=== PATIENT | male | born 1955 | race Two or more races ===

== ENCOUNTER 2017-06-03 19:00 | Inpatient (IN) | payer MEDICARE, MEDICAID ==
--- NOTE | 2017-06-03 19:03 | ED Physician Chart ---
Chief Complaint/HPI - Patient Information Date Seen:: 06/03/17 Time Seen:: 19:02 Chief Complaint:: seizures History of Present Illness:: 51-year-old male with underlying seizure disorder which was fairly stabilized past, run in by ambulance with acute, worsening, intermittent with 2 episodes, severe, seizure activity that started this morning. Has associated postictal state after the seizures. Typically takes Depakote and Keppra which controlled his seizures. History limited by patient's underlying medical conditions and underlying psychiatric issues making him a poor historian History provided by EMS and EMS run sheet Allergies:: Allergies Allergy/AdvReac Type Severity Reaction Status Date / Time No Known Allergies Allergy Verified 08/26/16 14:19 Historian:: Patient, EMS Review:: Nurse's Note Reviewed, EMS run form Reviewed, Transfer documents Reviewed Review of Systems - Review of Systems Other: Complete system review otherwise unremarkable except as noted in history of present illness. Past Medical History - Past Medical History Past Medical History: Other (seizure disorder, diabetes mellitus type 2, chronic pain syndrome, muscle weakness, difficulty walking, pseudobulbar affect , mood affective disorder, COPD, BPH, anxiety disorder, unspecified osteoarthritis) Family History: None Social History: Non Smoker, No Alcohol, No Drug Use, Care Facility Surgical History: other (craniectomy) Psychiatricy History: Other Medication: Reviewed Family Medical History - Family Member Mother History Unknown: Yes Ethnicity: Unknown Living Status: Physical Exam - Physical Examination Other:: INITIAL VITAL SIGNS: Reviewed by me GENERAL: Alert and interactive. No acute distress HEAD: Head is normocephalic and atraumatic EYES: EOMI. PERRL. No scleral icterus. No conjunctival injection ENT: Moist mucous membranes. NECK: Supple. No masses. Full range of motion RESPIRATORY: No tachypnea. Clear breath sounds bilaterally. No wheezing, rales, or rhonchi CV: Regular rate and rhythm. No murmurs, rubs, or gallops ABDOMEN: Soft, non-distended, non-tender. No guarding. No rebound. No masses. EXTREMITIES: No deformity. No cyanosis. No edema. SKIN: Warm and dry. No obvious rashes. NEUROLOGIC: Alert and oriented oriented to self. Generalized Left-sided deficit with left sided contractions. Labs/Radiology/EKG Results - Lab Results Results: Laboratory Results WBC 8.8 Th/cmm (4.8-10.8) D 06/03/17 19:22 RBC 5.13 Mil/cmm (4.30-5.70) 06/03/17 19:22 Hgb 16.1 gm/dL (13.2-17.3) 06/03/17 19:22 Hct 48.5 % (39.0-49.0) 06/03/17 19:22 MCV 94.5 fl (80-99) 06/03/17 19:22 MCH 31.5 pg (26.0-30.0) H 06/03/17 19:22 MCHC Differential 33.3 pg (28.0-36.0) 06/03/17 19:22 RDW 12.7 % (11.5-20.0) 06/03/17 19:22 Plt Count 72 Th/cmm (150-400) L D 06/03/17 19:22 MPV 9.1 fl 06/03/17 19:22 Neutrophils (Manual) 73 % (40-80) 06/03/17 19:22 Lymphocytes 21 % (20-50) 06/03/17 19:22 Monocytes 4 % (2-10) 06/03/17 19:22 Eosinophils 2 % (0-5) 06/03/17 19:22 Platelet Estimate DECREASED PLATELETS (NORMAL) 06/03/17 19:22 Platelet Morphology NORMAL (NORMAL) 06/03/17 19:22 Sodium 136 mEq/L (136-145) 06/03/17 19:22 Potassium 3.7 mEq/L (3.5-5.1) 06/03/17 19:22 Chloride 106 mEq/L (98-107) 06/03/17 19:22 Carbon Dioxide 27.0 mEq/L (21.0-31.0) 06/03/17 19:22 Anion Gap 6.7 (7.0-16.0) L 06/03/17 19:22 BUN 21 mg/dL (7-25) 06/03/17 19:22 Creatinine 0.7 mg/dL (0.7-1.3) 06/03/17 19:22 Est GFR ( Amer) > 60.0 ml/min (>90) 06/03/17 19:22 Est GFR (Non-Af Amer) > 60.0 ml/min 06/03/17 19:22 BUN/Creatinine Ratio 30.0 06/03/17 19:22 Glucose 123 mg/dL (70-105) H 06/03/17 19:22 Calcium 9.5 mg/dL (8.6-10.3) 06/03/17 19:22 Total Bilirubin 1.2 mg/dL (0.3-1.0) H 06/03/17 19:22 AST 31 U/L (13-39) 06/03/17 19:22 ALT 30 U/L (7-52) 06/03/17 19:22 Alkaline Phosphatase 62 U/L (34-104) 06/03/17 19:22 Total Protein 7.2 gm/dL (6.0-8.3) 06/03/17 19:22 Albumin 3.9 gm/dL (4.2-5.5) L 06/03/17 19:22 Globulin 3.3 gm/dL 06/03/17 19:22 Albumin/Globulin Ratio 1.2 (1.0-1.8) 06/03/17 19:22 Urine Source CATH 06/03/17 20:00 Urine Color YELLOW 06/03/17 20:00 Urine Clarity SLIGHT HAZY (CLEAR) 06/03/17 20:00 Urine pH 7.5 06/03/17 20:00 Ur Specific [place] 1.010 (1.005-1.030) 06/03/17 20:00 Urine Protein NEGATIVE mg/dL (NEGATIVE) 06/03/17 20:00 Urine Glucose (UA) NEGATIVE mg/dL (NEGATIVE) 06/03/17 20:00 Urine Ketones NEGATIVE mg/dL (NEGATIVE) 06/03/17 20:00 Urine Blood NEGATIVE (NEGATIVE) 06/03/17 20:00 Urine Nitrate NEGATIVE (NEGATIVE) 06/03/17 20:00 Urine Bilirubin NEGATIVE (NEGATIVE) 06/03/17 20:00 Urine Urobilinogen 4.0 E.U./dL (0.2 - 1.0) H 06/03/17 20:00 Ur Leukocyte Esterase NEGATIVE (NEGATIVE) 06/03/17 20:00 Urine RBC NONE SEEN /hpf (0-5) 06/03/17 20:00 Urine WBC 2-5 /hpf (0-5) H 06/03/17 20:00 Ur Epithelial Cells RARE /lpf (FEW) 06/03/17 20:00 Amorphous Sediment MANY URATES (NONE SEEN) 06/03/17 20:00 Urine Bacteria FEW /hpf (NONE SEEN) 06/03/17 20:00 Valproic Acid 30.0 ug/mL (50.0-100.0) L 06/03/17 19:22 - Radiology Results Results: CT head without contrast NAD - EKG Interpretations Comments:: 12-lead EKG Interpretation by Florina Johnston MD: Normal Sinus Rhythm with ventricular rate of 76 beats per minute Normal axis Normal intervals No acute ST or T wave changes. No obvious STEMI ED Septic Shock - . Is Septic Shock (SBP<90, OR Lactate>4 mmol\L) present?: No Reassessment (Disposition) - Reassessment Reassessment:: 61-year-old male with underlying seizure disorder, has multiple other comorbidities complicating his history, patient's valproic acid level was low. We did give IV [place]'s arrival. He is currently uncontrolled seizure disorder. Is at increased risk of having more severe and damaging seizure activity. He will need further workup and treatment. Discussed the case with the hospitalist. We have administered 500 mg of valproic acid here in the ER. Patient is admitted for further workup and treatment. Reassessment Condition:: Unchanged - Diagnosis Diagnosis:: Uncontrolled seizures - Patient Disposition Discharge/Transfer:: Acute Care w/in this hosp Admitted to:: Telemetry Admitting Medical Physician:: Mynor Evans Time:: 21:52 Condition at Disposition:: Stable
[2017-06-03 19:33] LABS: HEMATOCRIT 48.5 % (39.0-49.0); HEMOGLOBIN 16.1 gm/dL (13.2-17.3); MEAN CELL VOLUME 94.5 fl (80-99); MEAN CORPUSCULAR HEMOGLOBIN 31.5 pg (26.0-30.0); MEAN CORPUSCULAR HGB CONC 33.3 pg (28.0-36.0); MEAN PLATELET VOLUME 9.1 fl; RED BLOOD COUNT 5.13 Mil/cmm (4.30-5.70); RED CELL DISTRIBUTION WIDTH 12.7 % (11.5-20.0)
[2017-06-03 19:45] LABS: ALB/GLOB RATIO 1.2 (1.0-1.8); ALKALINE PHOSPHATASE 62 U/L (34-104); ANION GAP 6.7 (7.0-16.0); BILIRUBIN,TOTAL 1.2 mg/dL (0.3-1.0); BUN - UREA NITROGEN 21 mg/dL (7-25); CALCIUM SERUM 9.5 mg/dL (8.6-10.3); CHLORIDE 106 mEq/L (98-107); CREATININE - SERUM 0.7 mg/dL (0.7-1.3); GLUCOSE 123 mg/dL (70-105); POTASSIUM SERUM 3.7 mEq/L (3.5-5.1); SGOT 31 U/L (13-39); SGPT/ALT 30 U/L (7-52); SODIUM SERUM 136 mEq/L (136-145)
[2017-06-03 19:49] LABS: PLATELET COUNT 72 Th/cmm (150-400); WHITE BLOOD COUNT 8.8 Th/cmm (4.8-10.8)
[2017-06-03 19:53] LABS: EOSINOPHIL 2 % (0-5); NEUTROPHILS 73 % (40-80); PLATELET ESTIMATE DECREASED PLATELETS (NORMAL); PLATELET MORPHOLOGY NORMAL (NORMAL); TOTAL CELLS COUNTED 100
[2017-06-03 20:24] LABS: URINE COLOR YELLOW
[2017-06-03 20:25] LABS: URINE BACTERIA FEW /hpf (NONE SEEN); URINE BILIRUBIN NEGATIVE (NEGATIVE); URINE BLOOD NEGATIVE (NEGATIVE); URINE EPITHELIAL CELLS RARE /lpf (FEW); URINE GLUCOSE (UA) NEGATIVE (NEGATIVE); URINE KETONE NEGATIVE (NEGATIVE); URINE PH 7.5; URINE PROTEIN NEGATIVE (NEGATIVE); URINE RBC NONE SEEN /hpf (0-5)
[2017-06-03 20:26] LABS: URINE AMORPHOUS SEDIMENT MANY URATES (NONE SEEN)
[2017-06-03] MEDS ORDERED: Valproate Sodium 500 MG in Sodium Chloride 0.9% 100 ML IV ONE (21:51)
[2017-06-03] MEDS ORDERED: guaiFENesin 200 MG/10 ML UDC PO PRN (22:14)
[2017-06-03] MEDS ORDERED: Ipratropium Neb 0.5 mg/2.5 mL UD IH PRN (22:14)
[2017-06-03] MEDS ORDERED: Albuterol Nebulizer 2.5mg/3mL HHN PRN (22:14)
[2017-06-03] MEDS ORDERED: Maalox 30 mL Cup PO PRN (22:14)
[2017-06-03] MEDS: Sodium Chloride 0.9% 1,000 ML IV SCH (23:39)
--- NOTE | 2017-06-04 03:10 | Admit Criteria Form ---
Admit Criteria Forms - Admit Criteria Diagnosis: SEIZURE Clinical Indications for Admission to Inpatient Care (Place 'X' for any and all applicable criteria): Admission is indicated for seizure and ANY ONE of the following(1)(2)(3)(4)(5): [ X]I. Inpatient admission required rather than observation care (Also use Seizure: Observation Care Criteria as appropriate) because of ANY ONE of the following: [ ]a) Altered mental status that is severe or persistent [ ]b) New focal neurologic deficit that is severe or persistent [ ]c) Metabolic disorder (eg, hypoglycemia, hyponatremia) that is severe or persistent [X ]d) Recurrent seizure [ ]e) Outpatient antiseizure regimen cannot be established (eg , patient cannot tolerate medication, initiation requires inpatient care) [X ]f) Need for ongoing intravenous infusion of antiseizure medication [ ]g) Cardiac arrhythmias of immediate concern [ ]h) Cerebral bleeding, hydrocephalus, or vasospasm monitoring (14) [ ]i) Increased intracranial pressure or cerebral edema monitoring (15) [ ]j) Other treatment or monitoring requiring inpatient admission [ ]II. Status epilepticus [A] or repetitive seizures not controlled with emergent treatment (6)(8) [ ]III. Brain disorder (eg, tumor, edema, and hydrocephalus) that requiring monitoring or intervention available only at inpatient level of care. [ ]IV. Brain insult (eg, severe trauma, stroke, drug toxicity, or withdrawal) that requires monitoring or intervention available only at inpatient level of care (10)(11) Extended stay beyond goal length of stay may be needed for (22) [ ]a) Complications of status epilepticus [ ]b) Refractory status epilepticus [ ]c) Etiology-specific therapy for conditions such as WATCH TECHNICIAN infection, head injury,eclampsia, severe metabolic abnormalities, and brain tumor [ ]d) Residual neurologic damage, [ ]e) Initiation of significant change to anticonvulsant treatment [ ]f) Older patients (65 years or older) [ ]g) Patient requiring intubation (eg, to protect airway) The original [facility] content created by [employer] has been revised. The portions of the content which have been revised are identified through the use of italic text or in bold, and [facility] has neither reviewed nor approved the modified material. All other unmodified content is copyright [facility] [employer]. Please see references footnoted in the original [facility] edition 2016 Admit Criteria Met?: Yes
[2017-06-04] MEDS ORDERED: BROMFENAC SODIUM EACH EYE SCH (09:00)
[2017-06-04] MEDS: Polyvinyl Alcohol Ophth Soln 15 mL Bottle EACH EYE SCH ×3 (10:06→22:09)
--- NOTE | 2017-06-04 10:56 | Diagnostic Imaging Report ---
Head CT without intravenous contrast Indication: Seizure Comparison: Head CT performed on 08/26/2016 Technique: Axial images were obtained from the vertex to the skull base without IV contrast. Coronal reconstructions were made. Total DLP: 908, CTDI42.7 FINDINGS: Images of the brain obtained without contrast again demonstrate large frontotemporal craniectomy defect with overlying graft noted. Streak artifact from the graft limits the examination. No evidence of gross hemorrhage. 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 Diffuse atrophy is noted. There is ex vacuo dilatation of the right lateral ventricle. No mass effect or midline shift. An a few pockets of gas are seen along the postsurgical bed of the right-sided graft. Similar findings were seen on prior examination. IMPRESSION: Extensive postsurgical changes of the right cerebral hemisphere including large right frontal temporal craniectomy with overlying surgical flap. Streak artifact from the surgical flap limits the examination, however, no gross hemorrhage is identified. Bernie area of encephalomalacia involving the right frontal and temporal lobe. Diffuse atrophy. Few pockets of gas seen along the postsurgical bed of the right frontal and temporal regions. Similar findings were seen on prior examination. Please correlate clinically.
[2017-06-04] MEDS: INSULIN ASPART, RECOMBINANT 100 UNITS/ML SUBQ SCH ×3 (12:00→21:39)
--- NOTE | 2017-06-04 13:21 | Internal Medicine Prog Note ---
Internal Medicine Subjective - Subjective Service Date: 06/04/17 ([id number]) Internal Medicine Objective - Results Result Diagrams: 06/03/17 19:22 06/03/17 19:22 Recent Labs: Laboratory Last Values WBC 8.8 Th/cmm (4.8-10.8) D 06/03/17 19:22 RBC 5.13 Mil/cmm (4.30-5.70) 06/03/17 19:22 Hgb 16.1 gm/dL (13.2-17.3) 06/03/17 19:22 Hct 48.5 % (39.0-49.0) 06/03/17 19:22 MCV 94.5 fl (80-99) 06/03/17 19:22 MCH 31.5 pg (26.0-30.0) H 06/03/17 19:22 MCHC Differential 33.3 pg (28.0-36.0) 06/03/17 19:22 RDW 12.7 % (11.5-20.0) 06/03/17 19:22 Plt Count 72 Th/cmm (150-400) L D 06/03/17 19:22 MPV 9.1 fl 06/03/17 19:22 Neutrophils (Manual) 73 % (40-80) 06/03/17 19:22 Lymphocytes 21 % (20-50) 06/03/17 19:22 Monocytes 4 % (2-10) 06/03/17 19:22 Eosinophils 2 % (0-5) 06/03/17 19:22 Platelet Estimate DECREASED PLATELETS (NORMAL) 06/03/17 19:22 Platelet Morphology NORMAL (NORMAL) 06/03/17 19:22 Sodium 136 mEq/L (136-145) 06/03/17 19:22 Potassium 3.7 mEq/L (3.5-5.1) 06/03/17 19:22 Chloride 106 mEq/L (98-107) 06/03/17 19:22 Carbon Dioxide 27.0 mEq/L (21.0-31.0) 06/03/17 19:22 Anion Gap 6.7 (7.0-16.0) L 06/03/17 19:22 BUN 21 mg/dL (7-25) 06/03/17 19:22 Creatinine 0.7 mg/dL (0.7-1.3) 06/03/17 19:22 Est GFR ( Amer) > 60.0 ml/min (>90) 06/03/17 19:22 Est GFR (Non-Af Amer) > 60.0 ml/min 06/03/17 19:22 BUN/Creatinine Ratio 30.0 06/03/17 19:22 Glucose 123 mg/dL (70-105) H 06/03/17 19:22 POC Glucose 108 MG/DL (70 - 105) H 06/04/17 12:03 Calcium 9.5 mg/dL (8.6-10.3) 06/03/17 19:22 Total Bilirubin 1.2 mg/dL (0.3-1.0) H 06/03/17 19:22 AST 31 U/L (13-39) 06/03/17 19:22 ALT 30 U/L (7-52) 06/03/17 19:22 Alkaline Phosphatase 62 U/L (34-104) 06/03/17 19:22 Total Protein 7.2 gm/dL (6.0-8.3) 06/03/17 19:22 Albumin 3.9 gm/dL (4.2-5.5) L 06/03/17 19:22 Globulin 3.3 gm/dL 06/03/17 19:22 Albumin/Globulin Ratio 1.2 (1.0-1.8) 06/03/17 19:22 Urine Source CATH 06/03/17 20:00 Urine Color YELLOW 06/03/17 20:00 Urine Clarity SLIGHT HAZY (CLEAR) 06/03/17 20:00 Urine pH 7.5 06/03/17 20:00 Ur Specific [place] 1.010 (1.005-1.030) 06/03/17 20:00 Urine Protein NEGATIVE mg/dL (NEGATIVE) 06/03/17 20:00 Urine Glucose (UA) NEGATIVE mg/dL (NEGATIVE) 06/03/17 20:00 Urine Ketones NEGATIVE mg/dL (NEGATIVE) 06/03/17 20:00 Urine Blood NEGATIVE (NEGATIVE) 06/03/17 20:00 Urine Nitrate NEGATIVE (NEGATIVE) 06/03/17 20:00 Urine Bilirubin NEGATIVE (NEGATIVE) 06/03/17 20:00 Urine Urobilinogen 4.0 E.U./dL (0.2 - 1.0) H 06/03/17 20:00 Ur Leukocyte Esterase NEGATIVE (NEGATIVE) 06/03/17 20:00 Urine RBC NONE SEEN /hpf (0-5) 06/03/17 20:00 Urine WBC 2-5 /hpf (0-5) H 06/03/17 20:00 Ur Epithelial Cells RARE /lpf (FEW) 06/03/17 20:00 Amorphous Sediment MANY URATES (NONE SEEN) 06/03/17 20:00 Urine Bacteria FEW /hpf (NONE SEEN) 06/03/17 20:00 Valproic Acid 30.0 ug/mL (50.0-100.0) L 06/03/17 19:22 - Physical Exam Vitals and I&O: Vital Signs Temp 98.0 F 06/04/17 04:00 Pulse 63 06/04/17 07:00 Resp 14 06/04/17 07:00 BP 116/52 06/04/17 04:00 Pulse Ox 95 06/04/17 07:00 Intake & Output 06/03/17 06/04/17 06/04/17 18:59 06:59 18:59 Weight (lbs) 199 lb 6.4 oz Other: # Voids 3 # Bowel Movements 1 Stool Characteristics Soft Active Medications: Current Medications Acetaminophen (Tylenol) 650 mg PO Q4HR PRN PRN Reason: pain Stop: 08/02/17 22:10 Acetaminophen (Tylenol) 650 mg PO Q4HR PRN PRN Reason: temp>101 Stop: 08/02/17 22:10 Al Hydrox/Mg Hydrox/Simethicone (Maalox) 30 ml PO Q6H PRN PRN Reason: Dyspepsia Stop: 08/02/17 22:13 Albuterol Sulfate (Albuterol 2.5mg/3ml Neb Ud) 2.5 mg HHN Q2HRT PRN PRN Reason: Shortness of Breath or Wheeze Stop: 08/02/17 22:13 Artificial Tears (Artificial Tears Ophth Soln) 1 drop EACH EYE TID KELLEE Stop: 08/03/17 08:59 Last Admin: 06/04/17 10:06 Dose: 1 drop Divalproex Sodium (Depakote Dr) 250 mg PO HS KELLEE PRN Reason: Protocol Stop: 08/03/17 20:59 Divalproex Sodium (Depakote Dr) 250 mg PO QAM KELLEE PRN Reason: Protocol Stop: 08/03/17 08:59 Last Admin: 06/04/17 10:06 Dose: 250 mg Docusate Sodium (Colace) 100 mg PO DAILY [facility] Stop: 08/03/17 08:59 Last Admin: 06/04/17 10:06 Dose: 100 mg Guaifenesin (Robitussin) 200 mg PO Q4HR PRN PRN Reason: Cough or Congestion Stop: 08/02/17 22:13 Heparin Sodium (Porcine) (Heparin) 5,000 units SUBQ Q12HR KELLEE Stop: 08/03/17 08:59 Last Admin: 06/04/17 10:05 Dose: 5,000 units Sodium Chloride (Nacl 0.9%) 1,000 mls @ 80 mls/hr IV .[id number] [facility] Stop: 08/02/17 22:14 Last Admin: 06/03/17 23:39 Dose: 80 mls/hr Insulin Aspart (Novolog) 0 units SUBQ ACHS KELLEE PRN Reason: Protocol Stop: 08/03/17 07:29 Ipratropium [place] (Atrovent Neb 0.5mg/2.5ml) 0.5 mg IH Q2HRT PRN PRN Reason: Shortness of Breath or Wheeze Stop: 08/02/17 22:13 Levetiracetam (Keppra) 750 mg PO BID [facility] Stop: 08/03/17 08:59 Last Admin: 06/04/17 10:05 Dose: 750 mg Lorazepam (Ativan) 0.5 mg PO Q6HR PRN; Protocol PRN Reason: Anxiety Stop: 08/02/17 22:10 Lorazepam (Ativan) 1 mg IV Q4H PRN; Protocol PRN Reason: Seizure Stop: 08/02/17 22:13 Metformin HCl (Glucophage) 500 mg PO BID [facility] Stop: 08/03/17 08:59 Last Admin: 06/04/17 10:06 Dose: 500 mg Miscellaneous (Bromfenac Sodium [Bromfenac Sodium]) 1 drop EACH EYE DAILY [facility] Stop: 08/03/17 08:59 Miscellaneous (Mineral Oil/Petrolatum,White [Refresh Lacri-Lube Ointment]) 1 appl EACH EYE HS KELLEE Stop: 08/03/17 20:59 Ondansetron HCl (Zofran) 4 mg IV Q8H PRN PRN Reason: Nausea / Vomiting Stop: 08/02/17 22:13 Tamsulosin HCl (Flomax) 0.4 mg PO HS KELLEE Stop: 08/03/17 20:59 Zolpidem Tartrate (Ambien) 10 mg PO HS PRN PRN Reason: Insomnia Stop: 08/02/17 22:13 Internal Medicine Assmt/Plan - Assessment Assessment: uncontrolled sz dysphagia htn copd oa bph hemiplegia/hemiparesis gerd
--- NOTE | 2017-06-04 14:01 | History & Physical ---
ADMIT DATE: 06/04/2017 CHIEF COMPLAINT: Seizure. HISTORY OF PRESENT ILLNESS: This is a 61-year-old male who is a resident of [facility] who is brought here to [facility] for 1-day history of seizures. According to ER records, the patient had 2 episodes of worsening seizures. For this reason, the patient was brought to [facility]. PAST MEDICAL HISTORY: Seizure disorder, type 2 diabetes, chronic pain syndrome, muscle weakness, difficulty walking, ____ affect, mood affective disorder, COPD, BPH, anxiety, osteoarthritis. FAMILY HISTORY: Noncontributory. SOCIAL HISTORY: The patient is a [facility] resident, requiring 24-hour nursing care. PAST SURGICAL HISTORY: Craniectomy. MEDICATIONS: Please see medication reconciliation sheet. REVIEW OF SYSTEMS: GENERAL: Denies any fevers or chills. CARDIOVASCULAR: Denies any chest pain. RESPIRATORY: Denies any shortness of breath. GASTROINTESTINAL: Denies any nausea, vomiting, abdominal pain. All other systems are reviewed by me and are negative. PHYSICAL EXAMINATION: GENERAL: The patient is well developed, well nourished, no acute distress. VITAL SIGNS: Temperature 98.0, heart rate 60, blood pressure 116/52, respirations 20, O2 97%. HEENT: Head; normocephalic, atraumatic. NECK: Supple. No mass. LUNGS: Clear bilaterally. HEART: Regular rhythm. ABDOMEN: Soft and nontender. LABORATORY DATA: WBC 8.8, H and H is 16.1 and 48.5, platelets of 72. Sodium 136, potassium 3.7, chloride 106, BUN 21, creatinine 0.7. Valproic acid 30.0. DIAGNOSTICS: The patient had a CT of the head done and the impression is extensive postsurgical changes in the right cerebral hemisphere including large right frontotemporal craniectomy with overlying surgical flap. ASSESSMENT: Uncontrolled seizure, benign prostatic hypertrophy, type 2 diabetes, dysphasia, hemiplegia, hemiparesis, chronic obstructive pulmonary disease. PLAN: The patient to be admitted to the telemetry unit. The patient will have a consultation with neurologist. The patient will be kept on IV fluids for hydration. Seizure precautions will be initiated. We will continue to monitor the patient. JOB# [id number]
[2017-06-05] MEDS: Sodium Chloride 0.9% 1,000 ML IV SCH ×2 (03:31→16:59)
[2017-06-05 05:51] LABS: NEUTROPHILE ABSOLUTE 1.9 Th/cmm (1.8-8.0)
[2017-06-05 05:58] LABS: % LYMPHOCYTES 29.5 % (20.0-50.0); % MONOCYTES 10.4 % (2.0-10.0); % NEUTROPHILS 53.1 % (40.0-80.0); HEMOGLOBIN 15.4 gm/dL (13.2-17.3); MEAN CELL VOLUME 95.4 fl (80-99); MEAN CORPUSCULAR HEMOGLOBIN 31.9 pg (26.0-30.0); MEAN CORPUSCULAR HGB CONC 33.5 pg (28.0-36.0); PLATELET COUNT 63 Th/cmm (150-400); RED BLOOD COUNT 4.82 Mil/cmm (4.30-5.70); RED CELL DISTRIBUTION WIDTH 12.7 % (11.5-20.0)
[2017-06-05 06:07] LABS: WHITE BLOOD COUNT 3.5 Th/cmm (4.8-10.8)
[2017-06-05 06:12] LABS: ANION GAP 5.7 (7.0-16.0); BUN - UREA NITROGEN 13 mg/dL (7-25); BUN/CREATININE RATIO 21.7; CALCIUM SERUM 9.1 mg/dL (8.6-10.3); CARBON DIOXIDE 27.1 mEq/L (21.0-31.0); CHLORIDE 108 mEq/L (98-107); CREATININE - SERUM 0.6 mg/dL (0.7-1.3); GLUCOSE 93 mg/dL (70-105); POTASSIUM SERUM 3.8 mEq/L (3.5-5.1); SODIUM SERUM 137 mEq/L (136-145)
[2017-06-05] MEDS: INSULIN ASPART, RECOMBINANT 100 UNITS/ML SUBQ SCH ×4 (06:45→21:00)
[2017-06-05] MEDS: Polyvinyl Alcohol Ophth Soln 15 mL Bottle EACH EYE SCH ×3 (08:29→21:00)
--- NOTE | 2017-06-05 12:25 | Internal Medicine Prog Note ---
Internal Medicine Subjective - Subjective Service Date: 06/05/17 Patient seen and examined:: with staff Patient is:: awake Per staff patient has:: no adverse event Internal Medicine Objective - Results Result Diagrams: 06/05/17 05:10 06/05/17 05:10 Recent Labs: Laboratory Last Values WBC 3.5 Th/cmm (4.8-10.8) L D 06/05/17 05:10 RBC 4.82 Mil/cmm (4.30-5.70) 06/05/17 05:10 Hgb 15.4 gm/dL (13.2-17.3) 06/05/17 05:10 Hct 46.0 % (39.0-49.0) 06/05/17 05:10 MCV 95.4 fl (80-99) 06/05/17 05:10 MCH 31.9 pg (26.0-30.0) H 06/05/17 05:10 MCHC Differential 33.5 pg (28.0-36.0) 06/05/17 05:10 RDW 12.7 % (11.5-20.0) 06/05/17 05:10 Plt Count 63 Th/cmm (150-400) L 06/05/17 05:10 MPV 9.0 fl 06/05/17 05:10 Neutrophils % 53.1 % (40.0-80.0) 06/05/17 05:10 Lymphocytes % 29.5 % (20.0-50.0) 06/05/17 05:10 Monocytes % 10.4 % (2.0-10.0) H 06/05/17 05:10 Eosinophils % 7.0 % (0.0-5.0) H 06/05/17 05:10 Basophils % 0.0 % (0.0-2.0) 06/05/17 05:10 Neutrophils (Manual) 73 % (40-80) 06/03/17 19:22 Lymphocytes 21 % (20-50) 06/03/17 19:22 Monocytes 4 % (2-10) 06/03/17 19:22 Eosinophils 2 % (0-5) 06/03/17 19:22 Platelet Estimate DECREASED PLATELETS (NORMAL) 06/03/17 19:22 Platelet Morphology NORMAL (NORMAL) 06/03/17 19:22 Sodium 137 mEq/L (136-145) 06/05/17 05:10 Potassium 3.8 mEq/L (3.5-5.1) 06/05/17 05:10 Chloride 108 mEq/L (98-107) H 06/05/17 05:10 Carbon Dioxide 27.1 mEq/L (21.0-31.0) 06/05/17 05:10 Anion Gap 5.7 (7.0-16.0) L 06/05/17 05:10 BUN 13 mg/dL (7-25) 06/05/17 05:10 Creatinine 0.6 mg/dL (0.7-1.3) L 06/05/17 05:10 Est GFR ( Amer) > 60.0 ml/min (>90) 06/05/17 05:10 Est GFR (Non-Af Amer) > 60.0 ml/min 06/05/17 05:10 BUN/Creatinine Ratio 21.7 06/05/17 05:10 Glucose 93 mg/dL (70-105) 06/05/17 05:10 POC Glucose 84 MG/DL (70 - 105) 06/05/17 11:43 Calcium 9.1 mg/dL (8.6-10.3) 06/05/17 05:10 Total Bilirubin 1.2 mg/dL (0.3-1.0) H 06/03/17 19:22 AST 31 U/L (13-39) 06/03/17 19:22 ALT 30 U/L (7-52) 06/03/17 19:22 Alkaline Phosphatase 62 U/L (34-104) 06/03/17 19:22 Total Protein 7.2 gm/dL (6.0-8.3) 06/03/17 19:22 Albumin 3.9 gm/dL (4.2-5.5) L 06/03/17 19:22 Globulin 3.3 gm/dL 06/03/17 19:22 Albumin/Globulin Ratio 1.2 (1.0-1.8) 06/03/17 19:22 Urine Source CATH 06/03/17 20:00 Urine Color YELLOW 06/03/17 20:00 Urine Clarity SLIGHT HAZY (CLEAR) 06/03/17 20:00 Urine pH 7.5 06/03/17 20:00 Ur Specific [place] 1.010 (1.005-1.030) 06/03/17 20:00 Urine Protein NEGATIVE mg/dL (NEGATIVE) 06/03/17 20:00 Urine Glucose (UA) NEGATIVE mg/dL (NEGATIVE) 06/03/17 20:00 Urine Ketones NEGATIVE mg/dL (NEGATIVE) 06/03/17 20:00 Urine Blood NEGATIVE (NEGATIVE) 06/03/17 20:00 Urine Nitrate NEGATIVE (NEGATIVE) 06/03/17 20:00 Urine Bilirubin NEGATIVE (NEGATIVE) 06/03/17 20:00 Urine Urobilinogen 4.0 E.U./dL (0.2 - 1.0) H 06/03/17 20:00 Ur Leukocyte Esterase NEGATIVE (NEGATIVE) 06/03/17 20:00 Urine RBC NONE SEEN /hpf (0-5) 06/03/17 20:00 Urine WBC 2-5 /hpf (0-5) H 06/03/17 20:00 Ur Epithelial Cells RARE /lpf (FEW) 06/03/17 20:00 Amorphous Sediment MANY URATES (NONE SEEN) 06/03/17 20:00 Urine Bacteria FEW /hpf (NONE SEEN) 06/03/17 20:00 Valproic Acid 30.0 ug/mL (50.0-100.0) L 06/03/17 19:22 - Physical Exam Vitals and I&O: Vital Signs Temp 98.5 F 06/05/17 11:59 Pulse 67 06/05/17 11:59 Resp 18 06/05/17 12:00 BP 101/67 06/05/17 11:59 Pulse Ox 94 06/05/17 11:59 Intake & Output 06/04/17 06/05/17 06/05/17 18:59 06:59 18:59 Intake Total 1000 100 200 Balance 1000 100 200 Weight (lbs) 199 lb 6.4 oz 194 lb 189 lb Intake: Intake, IV Amount 1000 Sodium Chloride 0.9% 1, 1000 000 ml @ 80 mls/hr IV . [id number] [facility] Rx#:[id number] Oral 100 200 Other: # Voids 4 1 Stool Characteristics Soft Soft Soft Active Medications: Current Medications Acetaminophen (Tylenol) 650 mg PO Q4HR PRN PRN Reason: pain Stop: 08/02/17 22:10 Acetaminophen (Tylenol) 650 mg PO Q4HR PRN PRN Reason: temp>101 Stop: 08/02/17 22:10 Al Hydrox/Mg Hydrox/Simethicone (Maalox) 30 ml PO Q6H PRN PRN Reason: Dyspepsia Stop: 08/02/17 22:13 Albuterol Sulfate (Albuterol 2.5mg/3ml Neb Ud) 2.5 mg HHN Q2HRT PRN PRN Reason: Shortness of Breath or Wheeze Stop: 08/02/17 22:13 Artificial Tears (Lubrifresh Ophth Oint) 1 appl EACH EYE HS [facility] Stop: 08/04/17 20:59 Artificial Tears (Artificial Tears Ophth Soln) 1 drop EACH EYE TID [facility] Stop: 08/03/17 08:59 Last Admin: 06/05/17 08:29 Dose: 1 drop Divalproex Sodium (Depakote Dr) 250 mg PO HS [facility] PRN Reason: Protocol Stop: 08/03/17 20:59 Last Admin: 06/04/17 21:34 Dose: 250 mg Divalproex Sodium (Depakote Dr) 250 mg PO QAM [facility] PRN Reason: Protocol Stop: 08/03/17 08:59 Last Admin: 06/05/17 08:29 Dose: 250 mg Docusate Sodium (Colace) 100 mg PO DAILY [facility] Stop: 08/03/17 08:59 Last Admin: 06/05/17 08:29 Dose: 100 mg Guaifenesin (Robitussin) 200 mg PO Q4HR PRN PRN Reason: Cough or Congestion Stop: 08/02/17 22:13 Heparin Sodium (Porcine) (Heparin) 5,000 units SUBQ Q12HR [facility] Stop: 08/03/17 08:59 Last Admin: 06/05/17 08:30 Dose: 5,000 units Sodium Chloride (Nacl 0.9%) 1,000 mls @ 80 mls/hr IV .[id number] [facility] Stop: 08/02/17 22:14 Last Admin: 06/05/17 03:31 Dose: 80 mls/hr Insulin Aspart (Novolog) 0 units SUBQ ACHS [facility] PRN Reason: Protocol Stop: 08/03/17 07:29 Last Admin: 06/05/17 06:45 Dose: Not Given Ipratropium [place] (Atrovent Neb 0.5mg/2.5ml) 0.5 mg IH Q2HRT PRN PRN Reason: Shortness of Breath or Wheeze Stop: 08/02/17 22:13 Levetiracetam (Keppra) 750 mg PO BID [facility] Stop: 08/03/17 08:59 Last Admin: 06/05/17 08:30 Dose: 750 mg Lorazepam (Ativan) 0.5 mg PO Q6HR PRN; Protocol PRN Reason: Anxiety Stop: 08/02/17 22:10 Lorazepam (Ativan) 1 mg IV Q4H PRN; Protocol PRN Reason: Seizure Stop: 08/02/17 22:13 Metformin HCl (Glucophage) 500 mg PO BID [facility] Stop: 08/03/17 08:59 Last Admin: 06/05/17 08:29 Dose: 500 mg Miscellaneous (Bromfenac Sodium [Bromfenac Sodium]) 1 drop EACH EYE DAILY [facility] Stop: 08/03/17 08:59 Ondansetron HCl (Zofran) 4 mg IV Q8H PRN PRN Reason: Nausea / Vomiting Stop: 08/02/17 22:13 Tamsulosin HCl (Flomax) 0.4 mg PO HS [facility] Stop: 08/03/17 20:59 Last Admin: 06/04/17 21:34 Dose: 0.4 mg Zolpidem Tartrate (Ambien) 10 mg PO HS PRN PRN Reason: Insomnia Stop: 08/02/17 22:13 General: weak, alert HEENT: NC/AT, PERRLA Neck: Supple Lungs: CTAB Abdomen: soft, non-tender, non-distended, positive bowel sound Extremities: clear Neurological: no change Internal Medicine Assmt/Plan - Assessment Assessment: uncontrolled sz dysphagia htn copd oa bph hemiplegia/hemiparesis gerd - Plan Plan: seizure precautions aspiration precautions ivf for hydration cbc/bmp in am continue current tx
[2017-06-05] MEDS ORDERED: Artificial Tear Ophth Oint 3.5 Gm Tube EACH EYE SCH (21:00)
[2017-06-06] MEDS: Sodium Chloride 0.9% 1,000 ML IV SCH ×2 (05:55→08:51)
[2017-06-06] MEDS: INSULIN ASPART, RECOMBINANT 100 UNITS/ML SUBQ SCH ×2 (06:30→12:07)
[2017-06-06 07:12] LABS: HEMATOCRIT 45.3 % (39.0-49.0); HEMOGLOBIN 15.5 gm/dL (13.2-17.3); MEAN CELL VOLUME 94.2 fl (80-99); MEAN CORPUSCULAR HEMOGLOBIN 32.3 pg (26.0-30.0); MEAN CORPUSCULAR HGB CONC 34.2 pg (28.0-36.0); MEAN PLATELET VOLUME 9.5 fl; PLATELET COUNT 63 Th/cmm (150-400); RED BLOOD COUNT 4.81 Mil/cmm (4.30-5.70); RED CELL DISTRIBUTION WIDTH 12.3 % (11.5-20.0)
[2017-06-06 07:45] LABS: BUN - UREA NITROGEN 11 mg/dL (7-25); BUN/CREATININE RATIO 18.3; CALCIUM SERUM 9.2 mg/dL (8.6-10.3); CARBON DIOXIDE 27.5 mEq/L (21.0-31.0); CHLORIDE 105 mEq/L (98-107); CREATININE - SERUM 0.6 mg/dL (0.7-1.3); GLUCOSE 91 mg/dL (70-105); POTASSIUM SERUM 3.5 mEq/L (3.5-5.1); SODIUM SERUM 136 mEq/L (136-145)
[2017-06-06 07:46] LABS: WHITE BLOOD COUNT 3.7 Th/cmm (4.8-10.8)
--- NOTE | 2017-06-06 08:20 | Consultation ---
DATE OF CONSULTATION: 06/05/2017 HISTORY OF PRESENT ILLNESS: The patient is a 61-year-old. The patient admitted because of seizures. While here the patient has not had any seizures. The patient has a hard ____ helmet. The patient is on Keppra 750 b.i.d. The patient is on valproic acid 250 mg twice a day. The patient has history of previous craniotomy. I don't know the reason. The patient has a lot of deficit on the right hemisphere frontotemporal parietal area. The patient has had previous flap put there probably most likely I suspect he had had an intracranial bleed, or stroke with edema. The patient with left hemiplegia, left neglect, dysarthria, cognitive impairment. PAST MEDICAL HISTORY: 1. Diabetes. 2. Chronic pain syndrome. 3. Seizure disorder. 4. Depression. 5. COPD. 6. Anxiety. 7. Osteoarthritis. MEDICATIONS: As per reconciliation. REVIEW OF SYSTEMS: Twelve point negative except for above. PHYSICAL EXAMINATION: VITAL SIGNS: Temperature 97.4, blood pressure 103/57 and pulse is 90. NECK: Supple, no bruits. HEART: Sounds S1, S2. LUNGS: Clear. NEUROLOGIC: The patient is awake. The patient has a hard ____ helmet on. The patient is markedly dysarthric, but is able to answer, he gives me his name. He is actually able to name simple objects such as pen and glasses. He tells me he is in the hospital, but he cannot tell me what day or month it is. CRANIAL NERVES: Left visual field defect. Pupils reactive to light. Left facial weakness. MOTOR: The patient has paralysis spasticity on the left side. He moves the right side. INVESTIGATIONS: CT scan of the head shows previous craniotomy with scarring on the right side in the right frontotemporal area. IMPRESSION: 1. Seizures. 2. Previous craniotomy with defect on the right side. 3. Diabetes. 4. Left hemiplegia. MANAGEMENT: Continue present medication. If seizures recur, we will probably increase the Keppra. JOB# [id number]
[2017-06-06 08:24] LABS: BAND NEUTROPHILE 2 % (0-10); EOSINOPHIL 4 % (0-5); NEUTROPHILS 56 % (40-80); PLATELET ESTIMATE DECREASED PLATELETS (NORMAL); PLATELET MORPHOLOGY NORMAL (NORMAL); TOTAL CELLS COUNTED 100
[2017-06-06] MEDS: Polyvinyl Alcohol Ophth Soln 15 mL Bottle EACH EYE SCH ×2 (08:50→13:19)
--- NOTE | 2017-06-06 12:02 | Internal Medicine Prog Note ---
Internal Medicine Subjective - Subjective Service Date: 06/06/17 (dc summary [id number]) Patient is:: awake Per staff patient has:: no adverse event Internal Medicine Objective - Results Result Diagrams: 06/06/17 06:15 06/06/17 06:15 Recent Labs: Laboratory Last Values WBC 3.7 Th/cmm (4.8-10.8) L 06/06/17 06:15 RBC 4.81 Mil/cmm (4.30-5.70) 06/06/17 06:15 Hgb 15.5 gm/dL (13.2-17.3) 06/06/17 06:15 Hct 45.3 % (39.0-49.0) 06/06/17 06:15 MCV 94.2 fl (80-99) 06/06/17 06:15 MCH 32.3 pg (26.0-30.0) H 06/06/17 06:15 MCHC Differential 34.2 pg (28.0-36.0) 06/06/17 06:15 RDW 12.3 % (11.5-20.0) 06/06/17 06:15 Plt Count 63 Th/cmm (150-400) L 06/06/17 06:15 MPV 9.5 fl 06/06/17 06:15 Neutrophils % 53.1 % (40.0-80.0) 06/05/17 05:10 Band Neutrophils % 2 % (0-10) 06/06/17 06:15 Lymphocytes % 29.5 % (20.0-50.0) 06/05/17 05:10 Monocytes % 10.4 % (2.0-10.0) H 06/05/17 05:10 Eosinophils % 7.0 % (0.0-5.0) H 06/05/17 05:10 Basophils % 0.0 % (0.0-2.0) 06/05/17 05:10 Neutrophils (Manual) 56 % (40-80) 06/06/17 06:15 Lymphocytes 29 % (20-50) 06/06/17 06:15 Monocytes 9 % (2-10) 06/06/17 06:15 Eosinophils 4 % (0-5) 06/06/17 06:15 Platelet Estimate DECREASED PLATELETS (NORMAL) 06/06/17 06:15 Platelet Morphology NORMAL (NORMAL) 06/06/17 06:15 RBC Morph Micro Appear NORMAL (NORMAL) 06/06/17 06:15 Sodium 136 mEq/L (136-145) 06/06/17 06:15 Potassium 3.5 mEq/L (3.5-5.1) 06/06/17 06:15 Chloride 105 mEq/L (98-107) 06/06/17 06:15 Carbon Dioxide 27.5 mEq/L (21.0-31.0) 06/06/17 06:15 Anion Gap 7.0 (7.0-16.0) 06/06/17 06:15 BUN 11 mg/dL (7-25) 06/06/17 06:15 Creatinine 0.6 mg/dL (0.7-1.3) L 06/06/17 06:15 Est GFR ( Amer) > 60.0 ml/min (>90) 06/06/17 06:15 Est GFR (Non-Af Amer) > 60.0 ml/min 06/06/17 06:15 BUN/Creatinine Ratio 18.3 06/06/17 06:15 Glucose 91 mg/dL (70-105) 06/06/17 06:15 POC Glucose 121 MG/DL (70 - 105) H 06/06/17 11:35 Calcium 9.2 mg/dL (8.6-10.3) 06/06/17 06:15 Total Bilirubin 1.2 mg/dL (0.3-1.0) H 06/03/17 19:22 AST 31 U/L (13-39) 06/03/17 19:22 ALT 30 U/L (7-52) 06/03/17 19:22 Alkaline Phosphatase 62 U/L (34-104) 06/03/17 19:22 Total Protein 7.2 gm/dL (6.0-8.3) 06/03/17 19:22 Albumin 3.9 gm/dL (4.2-5.5) L 06/03/17 19:22 Globulin 3.3 gm/dL 06/03/17 19:22 Albumin/Globulin Ratio 1.2 (1.0-1.8) 06/03/17 19:22 Urine Source CATH 06/03/17 20:00 Urine Color YELLOW 06/03/17 20:00 Urine Clarity SLIGHT HAZY (CLEAR) 06/03/17 20:00 Urine pH 7.5 06/03/17 20:00 Ur Specific [place] 1.010 (1.005-1.030) 06/03/17 20:00 Urine Protein NEGATIVE mg/dL (NEGATIVE) 06/03/17 20:00 Urine Glucose (UA) NEGATIVE mg/dL (NEGATIVE) 06/03/17 20:00 Urine Ketones NEGATIVE mg/dL (NEGATIVE) 06/03/17 20:00 Urine Blood NEGATIVE (NEGATIVE) 06/03/17 20:00 Urine Nitrate NEGATIVE (NEGATIVE) 06/03/17 20:00 Urine Bilirubin NEGATIVE (NEGATIVE) 06/03/17 20:00 Urine Urobilinogen 4.0 E.U./dL (0.2 - 1.0) H 06/03/17 20:00 Ur Leukocyte Esterase NEGATIVE (NEGATIVE) 06/03/17 20:00 Urine RBC NONE SEEN /hpf (0-5) 06/03/17 20:00 Urine WBC 2-5 /hpf (0-5) H 06/03/17 20:00 Ur Epithelial Cells RARE /lpf (FEW) 06/03/17 20:00 Amorphous Sediment MANY URATES (NONE SEEN) 06/03/17 20:00 Urine Bacteria FEW /hpf (NONE SEEN) 06/03/17 20:00 Valproic Acid 30.0 ug/mL (50.0-100.0) L 06/03/17 19:22 - Physical Exam Vitals and I&O: Vital Signs Temp 97.3 F 06/06/17 11:33 Pulse 72 06/06/17 11:33 Resp 19 06/06/17 11:33 BP 101/56 06/06/17 11:33 Pulse Ox 98 06/06/17 11:33 Intake & Output 06/05/17 06/06/17 06/06/17 18:59 06:59 18:59 Intake Total 1200 1240 234.667 Balance 1200 1240 234.667 Weight (lbs) 189 lb 197 lb Intake: Intake, IV Amount 1000 1000 234.667 Sodium Chloride 0.9% 1, 1000 1000 234.667 000 ml @ 80 mls/hr IV . [id number] [facility] Rx#:[id number] Oral 200 240 Other: # Voids 1 3 Stool Characteristics Soft Soft Formed Active Medications: Current Medications Acetaminophen (Tylenol) 650 mg PO Q4HR PRN PRN Reason: pain Stop: 08/02/17 22:10 Acetaminophen (Tylenol) 650 mg PO Q4HR PRN PRN Reason: temp>101 Stop: 08/02/17 22:10 Al Hydrox/Mg Hydrox/Simethicone (Maalox) 30 ml PO Q6H PRN PRN Reason: Dyspepsia Stop: 08/02/17 22:13 Albuterol Sulfate (Albuterol 2.5mg/3ml Neb Ud) 2.5 mg HHN Q2HRT PRN PRN Reason: Shortness of Breath or Wheeze Stop: 08/02/17 22:13 Artificial Tears (Lubrifresh Ophth Oint) 1 appl EACH EYE HS [facility] Stop: 08/04/17 20:59 Last Admin: 06/05/17 21:00 Dose: 1 appl Artificial Tears (Artificial Tears Ophth Soln) 1 drop EACH EYE TID [facility] Stop: 08/03/17 08:59 Last Admin: 06/06/17 08:50 Dose: 1 drop Divalproex Sodium (Depakote Dr) 250 mg PO HS [facility] PRN Reason: Protocol Stop: 08/03/17 20:59 Last Admin: 06/05/17 21:00 Dose: 250 mg Divalproex Sodium (Depakote Dr) 250 mg PO QAM [facility] PRN Reason: Protocol Stop: 08/03/17 08:59 Last Admin: 06/06/17 08:50 Dose: 250 mg Docusate Sodium (Colace) 100 mg PO DAILY [facility] Stop: 08/03/17 08:59 Last Admin: 06/06/17 08:50 Dose: 100 mg Guaifenesin (Robitussin) 200 mg PO Q4HR PRN PRN Reason: Cough or Congestion Stop: 08/02/17 22:13 Heparin Sodium (Porcine) (Heparin) 5,000 units SUBQ Q12HR [facility] Stop: 08/03/17 08:59 Last Admin: 06/06/17 08:50 Dose: 5,000 units Sodium Chloride (Nacl 0.9%) 1,000 mls @ 80 mls/hr IV .[id number] [facility] Stop: 08/02/17 22:14 Last Admin: 06/06/17 08:51 Dose: 80 mls/hr Insulin Aspart (Novolog) 0 units SUBQ ACHS [facility] PRN Reason: Protocol Stop: 08/03/17 07:29 Last Admin: 06/06/17 06:30 Dose: Not Given Ipratropium [place] (Atrovent Neb 0.5mg/2.5ml) 0.5 mg IH Q2HRT PRN PRN Reason: Shortness of Breath or Wheeze Stop: 08/02/17 22:13 Levetiracetam (Keppra) 750 mg PO BID [facility] Stop: 08/03/17 08:59 Last Admin: 06/06/17 08:50 Dose: 750 mg Lorazepam (Ativan) 1 mg IV Q4H PRN; Protocol PRN Reason: Seizure Stop: 08/02/17 22:13 Lorazepam (Ativan) 0.5 mg PO Q6HR PRN PRN Reason: Anxiety Stop: 08/05/17 10:33 Metformin HCl (Glucophage) 500 mg PO BID [facility] Stop: 08/03/17 08:59 Last Admin: 06/06/17 08:50 Dose: 500 mg Miscellaneous (Bromfenac Sodium [Bromfenac Sodium]) 1 drop EACH EYE DAILY [facility] Stop: 08/03/17 08:59 Ondansetron HCl (Zofran) 4 mg IV Q8H PRN PRN Reason: Nausea / Vomiting Stop: 08/02/17 22:13 Tamsulosin HCl (Flomax) 0.4 mg PO HS [facility] Stop: 08/03/17 20:59 Last Admin: 06/05/17 21:00 Dose: 0.4 mg Zolpidem Tartrate (Ambien) 10 mg PO HS PRN PRN Reason: Insomnia Stop: 08/02/17 22:13 General: weak, alert HEENT: NC/AT, PERRLA Neck: Supple Lungs: CTAB Abdomen: soft, non-tender, non-distended, positive bowel sound Extremities: clear Neurological: no change Internal Medicine Assmt/Plan - Assessment Assessment: uncontrolled sz dysphagia htn copd oa bph hemiplegia/hemiparesis gerd
--- NOTE | 2017-06-06 17:50 | Discharge Summary ---
DATE OF DISCHARGE: 06/06/2017 FINAL DIAGNOSES: Uncontrolled seizure, which is stable, benign prostatic hypertrophy, type 2 diabetes, dysphasia, hemiplegia, hemiparesis, chronic obstructive pulmonary disease. HISTORY OF PRESENT ILLNESS: This is a 61-year-old male who is a resident of [facility] who is brought here to [facility] for 1-day history of seizures. According to ER record, the patient had 2 episodes of worsening seizures. For this reason, the patient was admitted. PHYSICAL EXAMINATION: GENERAL: The patient is well developed, well nourished, no acute distress. VITAL SIGNS: Stable. HEENT: Normocephalic, atraumatic. NECK: Supple. No mass. LUNGS: Clear bilaterally. HEARTL: Regular rhythm. ABDOMEN: Soft and nontender. HOSPITAL COURSE: During the hospital stay, the patient was admitted to the telemetry unit. The patient had a consultation with Dr. Harden. The patient had a CT of the head done and the impression is extensive postsurgical changes in the right cerebral hemisphere including large right ____ temporal craniectomy with overlying surgical flap. The patient did not have any seizure activities during the hospital stay. For this reason, the patient is stable for discharge. CONDITION UPON DISCHARGE: Fair. DISPOSITION: The patient is going back to SNF. JOB# [id number]
== END 2017-06-06 16:07 | disposition home or self-care (01) | DRG 101 ==
LOC: ER 19:00 → TELE 22:05
PROVIDERS: ADMIT Internal Medicine; ATTEND Internal Medicine
DX: G40.909 Epilepsy, unspecified, not intractable, without status epilepticus (principal); G81.94 Hemiplegia, unspecified affecting left nondominant side; R47.1 Dysarthria and anarthria; G31.84 Mild cognitive impairment of uncertain or unknown etiology; N40.0 Benign prostatic hyperplasia without lower urinary tract symptoms; E11.9 Type 2 diabetes mellitus without complications; R13.10 Dysphagia, unspecified; J44.9 Chronic obstructive pulmonary disease, unspecified; K21.9 Gastro-esophageal reflux disease without esophagitis; M19.90 Unspecified osteoarthritis, unspecified site; G89.4 Chronic pain syndrome; F39 Unspecified mood [affective] disorder; F41.9 Anxiety disorder, unspecified
CPT/HCPCS: 36415-UA; 70450-TC; 80048-TC; 80053-TC; 80164-TC; 81001-TC; 82948-90; 85007-TC; 85025-TC; 85027-TC; 93005; 94760; 96374; 96375; J1644; J1815; J2060; J7030; Z7610